=== PATIENT | female | born 1985 ===

== ENCOUNTER 2021-11-10 08:14 | Outpatient (CLI) | payer OTHER | END 2021-11-10 08:36 | disposition home or self-care (01) | LOC: RX STUDY 08:14 | PROVIDERS: ATTEND Obstetrics & Gynecology Reproductive Endocrinology | DX: N94.6 Dysmenorrhea, unspecified (principal); E28.8 Other ovarian dysfunction; D25.9 Leiomyoma of uterus, unspecified ==